=== PATIENT | male | born 1960 | race Caucasian/White ===

== ENCOUNTER 2017-07-15 13:50 | Inpatient (IN) | payer MEDICAID, OTHER ==
[~2017-07-15] VITALS: Ht 170.2 cm; Wt 96.4 kg
--- NOTE | 2017-07-15 14:05 | NUR ---
R AC G 20 IV STARTED CONVERTED TO SALINE LOCK.
[2017-07-15] MEDS ORDERED: ALBUTEROL FS 2.5 MG/3 ML VIAL.NEB NEB ONE (14:30)
[2017-07-15] MEDS ORDERED: methylPREDNISolone SOD SUCC 125 MG/2ML VIAL IV ONE (14:30)
[2017-07-15] MEDS ORDERED: IPRATROPIUM NEB FS 0.5 MG/2.5 ML AMPUL.NEB NEB ONE (14:30)
[2017-07-15 14:43] LABS: CALCIUM, SERUM 9.4 mg/dL (8.5-10.1); CARBON DIOXIDE 30 mmol/L (21-32); CHLORIDE 100 mmol/L (98-107); CREATININE 1.1 mg/dL (0.6-1.3); GLUCOSE 95 mg/dL (74-106); POTASSIUM 4.4 mmol/L (3.5-5.1); SODIUM SERUM 139 mmol/L (136-145); UREA NITROGEN, BLOOD 18 mg/dL (7-18)
[2017-07-15 14:52] LABS: TROPONIN I < 0.017 ng/mL (0.00-0.056)
[2017-07-15 14:54] LABS: BASOPHILS % (AUTO) 0.6 % (0.0-2.0); EOSINOPHILS % (AUTO) 0.4 % (0.0-6.0); HEMATOCRIT 51 % (39-51); HEMOGLOBIN 17.2 g/dL (13.5-17.5); LYMPHOCYTES # (AUTO) 1.1 /CMM (0.8-4.8); LYMPHOCYTES % (AUTO) 13.3 % (20.0-44.0); MEAN CORPUSCULAR HEMOGLOBIN 29 PG (26.0-33.0); MEAN CORPUSCULAR HGB CONC 34 g/dl (31.0-36.0); MEAN CORPUSCULAR VOLUME 87 fL (80-96); MONOCYTES # (AUTO) 1.1 /CMM (0.1-1.30); MONOCYTES % (AUTO) 13.3 % (2.0-12.0); NEUTROPHILS % (AUTO) 72.4 % (43.0-81.0); PLATELET COUNT (AUTO) 235 /CMM (150-450); RDW COEFFICIENT OF VARIATION 13.6 (11.5-15.0); RED BLOOD CELL COUNT(AUTO) 5.87 MIL/uL (4.5-6.0); WHITE BLOOD COUNT (AUTO) 8.3 K/uL (4.3-11.0)
[2017-07-15] MEDS ORDERED: methylPREDNISolone SOD SUCC 125 MG/2ML VIAL ONE (15:28)
[2017-07-15] MEDS ORDERED: ALBUTEROL FS 2.5 MG/0.5 ML VIAL.NEB ONE ×2 (15:29→15:59)
[2017-07-15] MEDS ORDERED: IPRATROPIUM NEB FS 0.5 MG/2.5 ML AMPUL.NEB ONE (15:29)
[2017-07-15] MEDS ORDERED: ALBUTEROL FS 2.5 MG/3 ML VIAL.NEB ONE (15:59)
[2017-07-15] MEDS ORDERED: ALBUTEROL FS 2.5 MG/0.5 ML VIAL.NEB NEB ONE ×2 (16:30→17:00)
[2017-07-15] MEDS ORDERED: ALBU18HF2 IH (16:59)
[2017-07-15] MEDS ORDERED: ALBU1.257 IH (16:59)
[2017-07-15] MEDS ORDERED: FLUT1DIS3 IH (16:59)
--- NOTE | 2017-07-15 17:13 | NUR ---
CALLED NURSING SUP. FOR MS BED
[2017-07-15] MEDS ORDERED: ONDANSETRON HCL/PF 4 MG/2 ML VIAL ONE (17:16)
[2017-07-15] MEDS ORDERED: Z GUARD REMEDY 2 OZ OINT TP PRN (17:30)
[2017-07-15] MEDS ORDERED: ONDANSETRON HCL/PF 4 MG/2 ML VIAL IVP PRN (17:30)
[2017-07-15] MEDS ORDERED: ALBUTEROL FS 2.5 MG/3 ML VIAL.NEB NEB PRN (17:30)
[2017-07-15] MEDS ORDERED: MAG HYDROX/AL HYDROX/SIMETH 30 ML UDC PO PRN (17:30)
[2017-07-15] MEDS ORDERED: ONDANSETRON HCL/PF - ER 4 MG/2 ML VIAL IV ONE (17:30)
[2017-07-15] MEDS ORDERED: HYDROMORPHONE 1 MG/1 ML DISP.SYRIN IV ONE (17:30)
[2017-07-15] MEDS ORDERED: MAGNESIUM HYDROXIDE 30 ML UDC PO PRN (17:30)
[2017-07-15] MEDS ORDERED: IV NS 0.9% 1,000 ML IV ONE (17:30)
[2017-07-15] MEDS ORDERED: HYDROMORPHONE 1 MG/1 ML DISP.SYRIN ONE (17:56)
--- NOTE | 2017-07-15 18:06 | NUR ---
MS 206
--- NOTE | 2017-07-15 18:35 | NUR ---
REPORT GIVEN TO NORMA
--- NOTE | 2017-07-15 19:15 | NUR ---
RN OPEN NOTES RECEIVED PATIENT AWAKE IN BED. A/O X4. NO SIGNS OF DISTRESS OR DISCOMFORT. BREATHING EVEN AND UNLABORED. PATIENT COMPLAINING OF R CHEST PAIN 6/10, BUT STATES PAIN IS TOLERABLE AT THIS TIME. IV ACCESS IN LAC, PATENT AND INTACT, NO SIGNS OF REDNESS OR INFILTRATION. BED IN LOW LOCKED POSITION WITH SIDE RAILS X2. CALL LIGHT WITHIN REACH. WILL CONTINUE TO MONITOR.
[2017-07-15 20:00] VITALS: BP 145/94
[2017-07-15] MEDS ORDERED: SERT50TA PO (20:13)
[2017-07-15 20:17] VITALS: BP 145/94
--- NOTE | 2017-07-15 20:25 | NUR ---
RN CLOSING NOTES PATIENT TRANSFERRED TO TELE BED 316 IN STABLE CONDITION. NO SIGNS OF DISTRESS OR DISCOMFORT. BREATHING EVEN AND UNLABORED. ENDORSED TO OLIVIER HASKINS FOR PJ.
--- NOTE | 2017-07-15 20:30 | NUR ---
TELERN RECEIVED FROM MS2 VIA BED, 57 Y/O MALE ALERT AND ORIENTED. PLACED ON TELEMETRY STATUS, ST RATE OF 109. NO RESPIRATORY DISTRESS, 96% ON RA. O2 STANDBY. TO CONTINUE.
[2017-07-15 20:45] VITALS: BP 126/93
[2017-07-15] MEDS: LEVOFLOXACIN 500 MG /D5W 100ML 500 MG in PREMIX 1 EA IV SCH (21:41)
[2017-07-15] MEDS: ENOXAPARIN SODIUM 40 MG/0.4 ML DISP.SYRIN SQ SCH (21:43)
[2017-07-15] MEDS: HYDROCODONE/APAP 5/325MG 1 EACH TABLET PO PRN (23:46)
--- NOTE | 2017-07-15 23:48 | NUR ---
TELERN BACK PAIN, LEVEL 6/10, NORHI 1 TAB PO ADMINISTERED. BEDREST INSTRUCTED.
[2017-07-16] VITALS: BP 153/97
[2017-07-16 00:52] LABS: TROPONIN I < 0.017 ng/mL (0.00-0.056)
[2017-07-16 01:24] LABS: CHOLESTEROL 210 mg/dL (<200); HDL CHOLESTEROL 42 mg/dL (40-60); LDL 149 mg/dL (0-99); TRIGLYCERIDES 82 mg/dL (30-150)
--- NOTE | 2017-07-16 05:19 | NUR ---
TELERN SLEP WELL. REMAINS SR ON THE MONITOR.
[2017-07-16 06:47] LABS: BASOPHILS % (AUTO) 0.1 % (0.0-2.0); EOSINOPHILS % (AUTO) 0.1 % (0.0-6.0); HEMATOCRIT 48 % (39-51); LYMPHOCYTES # (AUTO) 0.6 /CMM (0.8-4.8); MEAN CORPUSCULAR HEMOGLOBIN 29 PG (26.0-33.0); MEAN CORPUSCULAR HGB CONC 34 g/dl (31.0-36.0); MEAN CORPUSCULAR VOLUME 87 fL (80-96); MONOCYTES # (AUTO) 0.2 /CMM (0.1-1.30); MONOCYTES % (AUTO) 2.7 % (2.0-12.0); NEUTROPHILS # (AUTO) 7.2 /CMM (1.8-8.9); NEUTROPHILS % (AUTO) 90.1 % (43.0-81.0); PLATELET COUNT (AUTO) 227 /CMM (150-450); RDW COEFFICIENT OF VARIATION 12.9 (11.5-15.0); RED BLOOD CELL COUNT(AUTO) 5.49 MIL/uL (4.5-6.0)
[2017-07-16 07:12] LABS: CALCIUM, SERUM 8.7 mg/dL (8.5-10.1); PHOSPHORUS 3.4 mg/dL (2.5-4.9); POTASSIUM 3.9 mmol/L (3.5-5.1)
[2017-07-16] MEDS: ALBUTEROL FS 2.5 MG/3 ML VIAL.NEB NEB SCH ×2 (07:50→14:20)
--- NOTE | 2017-07-16 07:54 | NUR ---
MS RN OPENING NOTES RECEIVED PT FROM NIGHTSHIFT NURSE IN STABLE CONDITION. PT IS A/O X3. NO SOB OR SIGNS OF DISTRESS NOTED. HE DENIES ANY PAIN AT THIS TIME. PT IS ON RA AND SATING WELL @ 96%. WHEEZING NOTED UPON AUSCULTATION OF BILATERAL UPPER LOBES. PT. ASKS FOR PRN BREATHING TX. WILL ALERT RESPIRATORY THERAPIST. IV NOTED ON LEFT AC 20G, HL. IV IS PATENT AND INTACT. NO REDNESS OR SIGNS OF INFILTRATION NOTED. BED IN LOW LOCKED POSITION, SIDE RAILS UP X3, CALL LIGHT WITHIN REACH. WILL CONTINUE TO MONITOR
[2017-07-16 08:00] VITALS: BP 143/100
[2017-07-16] MEDS: HYDROCODONE/APAP 5/325MG 1 EACH TABLET PO PRN ×2 (08:38→20:56)
[2017-07-16] MEDS: ATORVASTATIN 10 MG TABLET PO SCH (08:39)
[2017-07-16] MEDS: methylPREDNISolone SOD SUCC 125 MG/2ML VIAL IV SCH ×3 (08:39→17:00)
[2017-07-16] MEDS: SERTRALINE HCL 50 MG TABLET PO SCH ×2 (08:40→17:00)
[2017-07-16] MEDS: FLUTICASONE/VILANTEROL 1 EACH BLST.W.DEV IH SCH (09:40)
[2017-07-16] MEDS: ACETAMINOPHEN 325 MG TABLET PO PRN (11:07)
[2017-07-16] MEDS: ALBUTEROL FS 2.5 MG/0.5 ML VIAL.NEB NEB SCH ×2 (14:20→19:42)
[2017-07-16 16:00] VITALS: BP 139/97
--- NOTE | 2017-07-16 18:41 | NUR ---
MS RN CLOSING NOTES PT REMAINS STABLE. NO ACUTE CHANGES IN CONDITION DURING SHIFT. BREATHING EVEN AND UNLABORED. NO SOB AT THIS TIME. PT SATING WELL ON RA. ALL NEEDS MET DURING SHIFT AND ORDERS CARRIED OUT ACCORDINGLY. WILL ENDORSE TO NIGHTSHIFT NURSE FOR PJ
[2017-07-16 20:00] VITALS: BP_SYST 131; BP_DIAS 83; BP_DIAS 85
--- NOTE | 2017-07-16 20:01 | NUR ---
RN OPEN NOTES RECEIVED PATIENT AWAKE IN BED. A/O X4. NO SIGNS OF DISTRESS OR DISCOMFORT. BREATHING EVEN AND UNLABORED. PATIENT CURRENTLY RECEIVING BREATHING TX AND TOLERATING WELL. DENIES ANY PAIN AT THIS TIME. IV ACCESS IN LAC, PATENT AND INTACT, NO SIGNS OF REDNESS OR INFILTRATION. BED IN LOW LOCKED POSITION WITH SIDE RAILS X2. CALL LIGHT WITHIN REACH. WILL CONTINUE TO MONITOR.
[2017-07-16] MEDS: LEVOFLOXACIN 500 MG /D5W 100ML 500 MG in PREMIX 1 EA IV SCH (20:55)
[2017-07-16] MEDS: ENOXAPARIN SODIUM 40 MG/0.4 ML DISP.SYRIN SQ SCH (20:56)
--- NOTE | 2017-07-16 20:56 | NUR ---
RN NOTES ADMINISTERED NORCO 5/325 ORDERED FOR HEADACHE PAIN 12/26. WILL CONTINUE TO MONITOR.
[2017-07-17] MEDS: ZOLPIDEM TARTRATE 5 MG TABLET PO PRN ×2 (00:24→22:41)
--- NOTE | 2017-07-17 00:24 | NUR ---
RN NOTES ADMINISTERED AMBIEN 5MG ORDERED AT PATIENT REQUEST FOR INSOMNIA. VSS. WILL CONTINUE TO MONITOR.
[2017-07-17] MEDS: ALBUTEROL FS 2.5 MG/0.5 ML VIAL.NEB NEB SCH ×4 (01:08→20:11)
[2017-07-17] MEDS: HYDROCODONE/APAP 5/325MG 1 EACH TABLET PO PRN ×3 (02:21→13:04)
--- NOTE | 2017-07-17 02:21 | NUR ---
RN NOTES ADMINISTERED NORCO 5/325 ORDERED FOR GENERALIZED PAIN 12/26. WILL CONTINUE TO MONITOR.
[2017-07-17 06:19] LABS: BASOPHILS % (AUTO) 0.1 % (0.0-2.0); EOSINOPHILS % (AUTO) 0.1 % (0.0-6.0); HEMATOCRIT 48 % (39-51); HEMOGLOBIN 15.9 g/dL (13.5-17.5); LYMPHOCYTES # (AUTO) 0.7 /CMM (0.8-4.8); LYMPHOCYTES % (AUTO) 4.3 % (20.0-44.0); MEAN CORPUSCULAR HEMOGLOBIN 29 PG (26.0-33.0); MEAN CORPUSCULAR HGB CONC 33 g/dl (31.0-36.0); MEAN CORPUSCULAR VOLUME 85 fL (80-96); MONOCYTES # (AUTO) 1.2 /CMM (0.1-1.30); MONOCYTES % (AUTO) 7.3 % (2.0-12.0); NEUTROPHILS # (AUTO) 15.1 /CMM (1.8-8.9); NEUTROPHILS % (AUTO) 88.2 % (43.0-81.0); PLATELET COUNT (AUTO) 248 /CMM (150-450); RDW COEFFICIENT OF VARIATION 12.9 (11.5-15.0); RED BLOOD CELL COUNT(AUTO) 5.57 MIL/uL (4.5-6.0)
[2017-07-17 06:37] LABS: CALCIUM, SERUM 8.4 mg/dL (8.5-10.1); MAGNESIUM 2.2 mg/dL (1.8-2.4); PHOSPHORUS 2.6 mg/dL (2.5-4.9); POTASSIUM 3.9 mmol/L (3.5-5.1)
--- NOTE | 2017-07-17 06:43 | NUR ---
RN OPEN NOTES PATIENT RESTING IN BED, EASILY AROUSABLE. A/O X4. NO SIGNS OF DISTRESS OR DISCOMFORT. BREATHING EVEN AND UNLABORED. DENIES ANY PAIN AT THIS TIME. IV ACCESS IN LAC, PATENT AND INTACT, NO SIGNS OF REDNESS OR INFILTRATION. ALL NEEDS MET. NO SIGNIFICANT CHANGES THROUGH THE NIGHT. BED IN LOW LOCKED POSITION WITH SIDE RAILS X2. CALL LIGHT WITHIN REACH. WILL ENDORSE TO AM SHIFT FOR PJ.
[2017-07-17] MEDS: ALBUTEROL FS 2.5 MG/3 ML VIAL.NEB NEB SCH ×2 (07:49→13:41)
[2017-07-17 08:00] VITALS: BP_SYST 113; BP_SYST 122; BP_DIAS 77; BP_DIAS 88
--- NOTE | 2017-07-17 08:00 | NUR ---
M/S RN - AM Notes Patient awake, A/O x 4, denies pain, not in any form of distress, afebrile, currently on 2lpm via NC, breathing tx, Solu-medrol IV for Asthma Exacerbation. Patient ambulatory and independent with bed mobility. Patient assisted with ADLs to prevent exhaustion. All needs attended and met. Will continue with current medical management.
[2017-07-17] MEDS: FLUTICASONE/VILANTEROL 1 EACH BLST.W.DEV IH SCH (08:24)
[2017-07-17] MEDS: methylPREDNISolone SOD SUCC 125 MG/2ML VIAL IV SCH ×3 (08:25→17:16)
[2017-07-17] MEDS: SERTRALINE HCL 50 MG TABLET PO SCH ×2 (08:25→17:16)
[2017-07-17] MEDS: ATORVASTATIN 10 MG TABLET PO SCH (08:25)
[2017-07-17] MEDS: AZITHROMYCIN 250 MG TABLET PO SCH (10:26)
[2017-07-17 16:00] VITALS: BP_SYST 140; BP_SYST 143; BP_DIAS 92
[2017-07-17] MEDS: LORAZEPAM 0.5 MG TABLET PO PRN (17:16)
--- NOTE | 2017-07-17 18:34 | NUR ---
M/S RN - Closing Notes No significant change in condition seen. Patient still c/o SOB when ambulating, educated on the importance of deep breathing and coughing exercises, use of oxygen, and energy conservation. Patient verbalized understanding of teachings. All needs attended. Will continue with current plan of care.
--- NOTE | 2017-07-17 19:10 | NUR ---
MS/EXPLOSIVE ORDNANCE DISPOSAL MANAGER; RECEIVED PT FROM DAY SHIFT RN FOR CONTINUITY OF CARE. AT THIS TIME PT IN BED AWAKE, ALERT, AND ORIENTED X 4. BREATHING NON LABORED WITH O2 2L NC ON. HL ON RFA INTACT AND PATENT. PT STATES STILL WITH CHEST PAIN , BACK PAIN AND ABDOMINAL WHEN HE COUGHS. BED ON LOWER POSITION AND LOCKED FOR SAFETY. UPPER PART OF BED SIDE RAILS ARE UP FOR SAFETY. PT. INSTRUCTED TO CALL FOR HELP. CALL LIGHT WITHIN REACH. ALSO PT WITH OCC. COUGH.
[2017-07-17 20:00] VITALS: BP 152/93
[2017-07-17] MEDS: ENOXAPARIN SODIUM 40 MG/0.4 ML DISP.SYRIN SQ SCH (21:06)
--- NOTE | 2017-07-17 22:40 | NUR ---
MS/SPECIAL NEEDS CAREGIVER; PT CALLED AND ASKED FOR SLEEPING MED. AMBIEN 5 MG PO HS PRN GIVEN ORDERED. PT INSTRUCTED TO CALL FOR HELP .
--- NOTE | 2017-07-17 22:45 | NUR ---
MS/FACILITIES LOCATOR; PT HAVING HEADACHE, TYLENOL 650 MG PO Q6 PRN GIVEN ORDERED. WILL REASSESS LATER ON.
[2017-07-17] MEDS: ACETAMINOPHEN 325 MG TABLET PO PRN (22:48)
[2017-07-18] MEDS: ALBUTEROL FS 2.5 MG/0.5 ML VIAL.NEB NEB SCH ×3 (02:12→14:21)
--- NOTE | 2017-07-18 07:00 | NUR ---
MS/SCHEDULE ANNOUNCER; PT WITH OCC. COUGHING AND WHEEZING. SLEPT AT GOOD INTERVALS. RESTING AT THIS TIME . WILL ENDORSE TO [facility] DAY SHIFT NURSE.
--- NOTE | 2017-07-18 07:30 | NUR ---
MS RN OPENING NOTES. PT A&0X3 OOB USING BATHROOM. PT WITH O2 VIA NC 3LPM AND REPORTING SOME SHORTNESS OF BREATH AND WHEEZING. RT READY TO PROVIDE THERAPY. PT REPORTING MINOR GENERALIZED PAIN, REQUESTING TYLENOL. PT WITH IVC AT L AC G#20 INTACT AND SALINE FLUSH PATENT. PT BRIEFED ON TODAY'S POC AND IS WITHOUT CONCERN OR COMPLAINT AT THIS TIME.
[2017-07-18 08:00] VITALS: BP 136/95
[2017-07-18] MEDS: ALBUTEROL FS 2.5 MG/3 ML VIAL.NEB NEB SCH ×4 (08:13→20:31)
[2017-07-18] MEDS: SERTRALINE HCL 50 MG TABLET PO SCH ×2 (08:19→18:11)
[2017-07-18] MEDS: ATORVASTATIN 10 MG TABLET PO SCH (08:19)
[2017-07-18] MEDS: FLUTICASONE/VILANTEROL 1 EACH BLST.W.DEV IH SCH (08:21)
[2017-07-18] MEDS: ACETAMINOPHEN 325 MG TABLET PO PRN (08:26)
[2017-07-18 09:02] LABS: CALCIUM, SERUM 8.7 mg/dL (8.5-10.1); MAGNESIUM 2.5 mg/dL (1.8-2.4); PHOSPHORUS 2.8 mg/dL (2.5-4.9)
[2017-07-18 09:11] LABS: EOSINOPHILS % (AUTO) 0.1 % (0.0-6.0); HEMATOCRIT 45 % (39-51); HEMOGLOBIN 15.3 g/dL (13.5-17.5); LYMPHOCYTES # (AUTO) 0.9 /CMM (0.8-4.8); LYMPHOCYTES % (AUTO) 6.4 % (20.0-44.0); MEAN CORPUSCULAR HEMOGLOBIN 29 PG (26.0-33.0); MEAN CORPUSCULAR HGB CONC 34 g/dl (31.0-36.0); MEAN CORPUSCULAR VOLUME 86 fL (80-96); MONOCYTES # (AUTO) 1.1 /CMM (0.1-1.30); MONOCYTES % (AUTO) 7.6 % (2.0-12.0); NEUTROPHILS # (AUTO) 12.6 /CMM (1.8-8.9); NEUTROPHILS % (AUTO) 85.9 % (43.0-81.0); PLATELET COUNT (AUTO) 259 /CMM (150-450); RDW COEFFICIENT OF VARIATION 12.8 (11.5-15.0); RED BLOOD CELL COUNT(AUTO) 5.23 MIL/uL (4.5-6.0); WHITE BLOOD COUNT (AUTO) 14.6 K/uL (4.3-11.0)
[2017-07-18 09:25] LABS: POTASSIUM 4.3 mmol/L (3.5-5.1)
[2017-07-18] MEDS: AZITHROMYCIN 250 MG TABLET PO SCH (09:51)
[2017-07-18] MEDS: methylPREDNISolone SOD SUCC 125 MG/2ML VIAL IV SCH ×3 (09:54→18:12)
[2017-07-18] MEDS: LORAZEPAM 0.5 MG TABLET PO PRN (09:56)
--- NOTE | 2017-07-18 10:00 | NUR ---
RN NOTES. PT REQUESTING PRN ATIVAN FOR ANXIETY.
[2017-07-18] MEDS: HYDROCODONE/APAP 5/325MG 1 EACH TABLET PO PRN (15:27)
[2017-07-18 16:00] VITALS: BP 157/99
--- NOTE | 2017-07-18 17:00 | NUR ---
RN NOTES. PT REQUESTED TO NOT EAT AND DRINK UNTIL AFTER A CT PULMONARY ANGIOGRAM. CONSENT SIGNED. EDUCATION PROVIDED.
[2017-07-18] MEDS ORDERED: IOHEXOL-350 100 ML VIAL IV ONE (17:19)
[2017-07-18] MEDS ORDERED: IV NS 0.9% 250 ML IV ONE (17:19)
[2017-07-18] MEDS: GUAIFENESIN/CODEINE 10 ML UDC PO SCH ×2 (18:11→22:56)
--- NOTE | 2017-07-18 19:03 | NUR ---
MS RN CLOSING NOTES. PT A&0X3, RESTING IN BED. PT WITH O2 VIA NC AT 2LPM AND SCHEDULED RT THERAPIES. PT REPORTING NO PAIN AT THIS TIME. PT WITH IVC AT L AC G#20 INTACT AND SALINE FLUSHED PATENT. BED IN LOWEST LOCKED POSITION WITH HANDRAILSX2 AND CALL LOERA WITHIN REACH. ALL DAY NURSE DUTIES ATTENDED TO, PATIENT IS WITHOUT CONCERN OR COMPLAINT AT THIS TIME, WILL ENDORSE TO NIGHT NURSE.
--- NOTE | 2017-07-18 19:30 | NUR ---
MS RN OPENING NOTES RECEIVED PATIENT RESTING IN BED, NO C/O PAIN, NO SOB, NO ACUTE DISTRESS NOTES @ THIS TIME. ON O2 @ 3 LPM VIA NC, NO ASTHMA EXACERBATION NOTED. A & O X 4, AMBULATORY, ABLE TO VERBALIZE NEEDS. CONTINENT OF B & BM. IV ACCESS TO LAC, SL, INTACT PATENT. IN SEMI CABAN POSITION. BED IN LOW LOCKED POSITION. CALL LIGHT WITHIN REACH. WILL CONTINUE TO MONITOR CLOSELY FOR ANY CHANGES.
[2017-07-18 20:08] VITALS: BP 146/101
[2017-07-18] MEDS: ENOXAPARIN SODIUM 40 MG/0.4 ML DISP.SYRIN SQ SCH (21:52)
[2017-07-18] MEDS: ZOLPIDEM TARTRATE 5 MG TABLET PO PRN (21:52)
--- NOTE | 2017-07-18 21:52 | NUR ---
PRN AMBIEN GIVEN PT ASKED TO TAKE AMBIEN DUE TO SLEEPLESSNESS. PRN AMBIEN GIVEN ORDERED. WILL REASSESS FOR EFFECTIVENESS.
[2017-07-19] MEDS: ALBUTEROL FS 2.5 MG/0.5 ML VIAL.NEB NEB SCH ×4 (01:22→19:21)
[2017-07-19 04:00] VITALS: BP 131/96
[2017-07-19] MEDS: GUAIFENESIN/CODEINE 10 ML UDC PO SCH ×4 (04:43→21:48)
--- NOTE | 2017-07-19 07:26 | NUR ---
MS RN OPENING NOTES. PT A&0X3 RESTING IN BED AND REQUESTING MORE SLEEP. PT WITH O2 VIA NC 3LPM AND REPORTING MINOR SOB WITHOUT DISTRESS, WHEEZING AUSCULTATED THROUGHOUT. NO ACTION TAKEN RT IS SCHEDULED THIS AM. PT WITH IVC AT L AC G#20 INTACT AND SALINE FLUSH PATENT. PT BRIEFED ON TODAY'S POC AND IS WITHOUT CONCERN OR COMPLAINT AT THIS TIME.
--- NOTE | 2017-07-19 07:54 | NUR ---
MS RN CLOSING NOTES PT SLEPT WELL @ NIGHT. NO C/O PAIN, NO SOB, NO ACUTE DISTRESS NOTES @ THIS TIME. ON O2 @ 3 LPM VIA NC, NO ASTHMA EXACERBATION NOTED. A & O X 4, ABLE TO VERBALIZE NEEDS. ALL NEEDS MET. CONTINENT OF B & BM. IV ACCESS TO LAC, SL, INTACT PATENT. IN SEMI CABAN POSITION. BED IN LOW LOCKED POSITION. CALL LIGHT WITHIN REACH.ENDORSED TO AM RN FOR CONTINUITY OF CARE.
[2017-07-19 08:00] VITALS: BP 142/89
[2017-07-19 08:01] LABS: BASOPHILS # (AUTO) 0.1 /CMM (0.0-0.2); BASOPHILS % (AUTO) 0.5 % (0.0-2.0); EOSINOPHILS % (AUTO) 0.1 % (0.0-6.0); HEMATOCRIT 46 % (39-51); HEMOGLOBIN 15.4 g/dL (13.5-17.5); LYMPHOCYTES % (AUTO) 8.8 % (20.0-44.0); MEAN CORPUSCULAR HEMOGLOBIN 29 PG (26.0-33.0); MEAN CORPUSCULAR HGB CONC 34 g/dl (31.0-36.0); MEAN CORPUSCULAR VOLUME 86 fL (80-96); MONOCYTES # (AUTO) 0.8 /CMM (0.1-1.30); MONOCYTES % (AUTO) 6.8 % (2.0-12.0); NEUTROPHILS # (AUTO) 9.2 /CMM (1.8-8.9); NEUTROPHILS % (AUTO) 83.8 % (43.0-81.0); PLATELET COUNT (AUTO) 243 /CMM (150-450); RDW COEFFICIENT OF VARIATION 12.9 (11.5-15.0); RED BLOOD CELL COUNT(AUTO) 5.35 MIL/uL (4.5-6.0); WHITE BLOOD COUNT (AUTO) 11.1 K/uL (4.3-11.0)
[2017-07-19] MEDS: FLUTICASONE/VILANTEROL 1 EACH BLST.W.DEV IH SCH (08:30)
[2017-07-19] MEDS: methylPREDNISolone SOD SUCC 125 MG/2ML VIAL IV SCH ×2 (08:31→13:12)
[2017-07-19] MEDS: SERTRALINE HCL 50 MG TABLET PO SCH ×2 (08:31→17:29)
[2017-07-19] MEDS: ALBUTEROL FS 2.5 MG/3 ML VIAL.NEB NEB SCH ×3 (08:47→19:21)
[2017-07-19 08:48] LABS: CALCIUM, SERUM 8.7 mg/dL (8.5-10.1); PHOSPHORUS 3.3 mg/dL (2.5-4.9)
[2017-07-19 09:06] LABS: POTASSIUM 3.7 mmol/L (3.5-5.1)
[2017-07-19] MEDS: AZITHROMYCIN 250 MG TABLET PO SCH (09:23)
[2017-07-19] MEDS: ATORVASTATIN 10 MG TABLET PO SCH (09:23)
[2017-07-19 16:00] VITALS: BP 133/84
[2017-07-19] MEDS: HYDROCODONE/APAP 5/325MG 1 EACH TABLET PO PRN (17:29)
--- NOTE | 2017-07-19 19:15 | NUR ---
RN OPEN NOTES RECEIVED PATIENT AWAKE IN BED. A/O X4. NO SIGNS OF DISTRESS OR DISCOMFORT. BREATHING EVEN AND UNLABORED. ON 2LPM O2 VIA NC. STATES HE HAS HEADACHE PAIN 5/10 AND TOLERABLE AT THIS TIME. IV ACCESS IN LAC, PATENT AND INTACT, NO SIGNS OF REDNESS OR INFILTRATION. BED IN LOW LOCKED POSITION WITH SIDE RAILS X2. CALL LIGHT WITHIN REACH. WILL CONTINUE TO MONITOR.
[2017-07-19 20:00] VITALS: BP 135/94
[2017-07-19 20:53] VITALS: BP 135/94
[2017-07-19] MEDS: ENOXAPARIN SODIUM 40 MG/0.4 ML DISP.SYRIN SQ SCH (21:50)
[2017-07-19] MEDS: ZOLPIDEM TARTRATE 5 MG TABLET PO PRN (21:53)
[2017-07-20] MEDS: ALBUTEROL FS 2.5 MG/0.5 ML VIAL.NEB NEB SCH ×3 (01:19→13:21)
[2017-07-20] MEDS: GUAIFENESIN/CODEINE 10 ML UDC PO SCH ×2 (05:28→11:13)
--- NOTE | 2017-07-20 07:59 | NUR ---
MS RN NOTES PATIENT IN BED, AWAKE. A/O X3. BREATHING TREATMENT GIVEN BY RT, EFFECTIVE, NO SOB. APPEARS COMFORTABLE IN BED, IVC IN LEFT AC G 20 PATENT AND INTACT, FLUSHES WELL. CALL LIGHT WITHIN REACH. WILL CONT TO MONITOR.
[2017-07-20 08:18] LABS: BASOPHILS # (AUTO) 0.1 /CMM (0.0-0.2); BASOPHILS % (AUTO) 0.4 % (0.0-2.0); HEMATOCRIT 46 % (39-51); HEMOGLOBIN 15.5 g/dL (13.5-17.5); LYMPHOCYTES % (AUTO) 15.7 % (20.0-44.0); MEAN CORPUSCULAR HEMOGLOBIN 29 PG (26.0-33.0); MEAN CORPUSCULAR HGB CONC 34 g/dl (31.0-36.0); MEAN CORPUSCULAR VOLUME 87 fL (80-96); MONOCYTES # (AUTO) 0.9 /CMM (0.1-1.30); MONOCYTES % (AUTO) 6.9 % (2.0-12.0); NEUTROPHILS # (AUTO) 9.8 /CMM (1.8-8.9); PLATELET COUNT (AUTO) 237 /CMM (150-450); RDW COEFFICIENT OF VARIATION 12.8 (11.5-15.0); RED BLOOD CELL COUNT(AUTO) 5.29 MIL/uL (4.5-6.0); WHITE BLOOD COUNT (AUTO) 12.8 K/uL (4.3-11.0)
[2017-07-20] MEDS: SERTRALINE HCL 50 MG TABLET PO SCH (08:42)
[2017-07-20] MEDS: ATORVASTATIN 10 MG TABLET PO SCH (08:42)
[2017-07-20] MEDS: AZITHROMYCIN 250 MG TABLET PO SCH (08:45)
[2017-07-20] MEDS: FLUTICASONE/VILANTEROL 1 EACH BLST.W.DEV IH SCH (08:45)
[2017-07-20] MEDS: HYDROCODONE/APAP 5/325MG 1 EACH TABLET PO PRN ×2 (08:52→15:00)
[2017-07-20 08:54] LABS: CALCIUM, SERUM 8.4 mg/dL (8.5-10.1); MAGNESIUM 2.5 mg/dL (1.8-2.4); PHOSPHORUS 3.3 mg/dL (2.5-4.9); POTASSIUM 3.5 mmol/L (3.5-5.1)
[2017-07-20] MEDS ORDERED: predniSONE 20 MG TABLET PO SCH (09:00)
[2017-07-20 11:10] LABS: BAND % (MANUAL) 3 % (0.0-5.0); LYMPHOCYTES % (MANUAL) 15 % (16-48); MONOCYTES % (MANUAL) 3 % (0-11.0); NEUTROPHILS % (MANUAL) 79 (42-76)
--- NOTE | 2017-07-20 12:44 | NUR ---
PATIENT IS AMBULATING WITH STEADY GAIT AND BALANCE, SATING 92% IN RA AFTER AMBULATION, NO SOB NOTED. PATIENT IS SEEN BY DR. TENA, PATIENT TO BE DISCHARGED HOME TODAY ORDERED.
--- NOTE | 2017-07-20 15:30 | NUR ---
MS RN DISCHARGED NOTES PATIENT HAS BEEN CLEARED FOR DISCHARGE HOME BY MD. VS REMAINS STABLE, TOLERATING ROOM AIR WITH NO SOB. SKIN INTACT, IVC REMOVED IN LEFT AC, GAUZE APPLIED, NO BLEEDING NOTED. DISCHARGE INSTRUCTION GIVEN TO THE PATIENT, VERBALIZED UNDERSTANDING. PRESCRIPTION AND BELONGINGS SEND WITH THE PATIENT UPON DC. PATIENT LEFT HOSP IN STABLE CONDITION VIA PRIVATE CAR ACCOMPANIED BY .
== END 2017-07-20 15:27 | disposition home or self-care (01) | DRG 133 ==
LOC: ER 13:55 → MEDSG2 18:42 → TELE 20:22 → MED 07-16 08:08
PROVIDERS: ADMIT Internal Medicine; ATTEND Internal Medicine
DX: J96.01 Acute respiratory failure with hypoxia (principal); J45.21 Mild intermittent asthma with (acute) exacerbation; I10 Essential (primary) hypertension; F32.9 Major depressive disorder, single episode, unspecified; E78.5 Hyperlipidemia, unspecified; E66.9 Obesity, unspecified; K21.9 Gastro-esophageal reflux disease without esophagitis; Z79.899 Other long term (current) drug therapy; Z88.0 Allergy status to penicillin; Z68.33 Body mass index [BMI] 33.0-33.9, adult; J40 Bronchitis, not specified as acute or chronic; R09.1 Pleurisy
CPT/HCPCS: 36415; 71010-TC; 80048-TC; 80061-TC; 83735-TC; 84100-TC; 84484-TC; 85025-TC; 87081-TC; A4216; A4606; J1170; J1650; J1956; J2405; J2930; J7030; J7050; Q9967; Z7610

== ENCOUNTER 2017-09-26 13:13 | Emergency (ER) | payer MEDICAID ==
[~2017-09-26] VITALS: Ht 170.2 cm; Wt 90.7 kg
[~2017-09-26 13:13] MED LIST: ALBU1.257 IH; ALBU18HF2 IH; SERT50TA PO
[2017-09-26 13:16] VITALS: BP 111/67
== END 2017-09-26 14:07 | disposition home or self-care (01) ==
LOC: ER 13:15
DX: H60.591 Other noninfective acute otitis externa, right ear (principal); L03.211 Cellulitis of face; I10 Essential (primary) hypertension; Z86.718 Personal history of other venous thrombosis and embolism; Z88.0 Allergy status to penicillin; Z60.2 Problems related to living alone
CPT/HCPCS: A4606; Z7610

== ENCOUNTER 2017-11-11 19:38 | Inpatient (IN) | payer MEDICAID ==
[~2017-11-11] VITALS: Ht 172.7 cm; Wt 95.7 kg
--- NOTE | 2017-11-11 00:20 | NUR ---
SPECIAL TESTER NOTES MADE AWARE OF BLOOD PRESSURE 142/105 WITH NO NEW ORDERS AT THIS TIME, WILL CONTINUE TO MONITOR.
--- NOTE | 2017-11-11 19:38 | NUR ---
BB SELF; SOB WITH ABDOMINAL PAIN 03/28. VSS NAD. PATIENT HAVING HARD TIME SITTING DOWN AT THIS TIME. WILL CONTINUE TO MONITOR FOR ANY CHANGES
--- NOTE | 2017-11-11 19:51 | NUR ---
BLOOD SENT TO LAB WITH FORENSIC LOCKSMITH
[2017-11-11] MEDS ORDERED: ONDANSETRON HCL/PF 4 MG/2 ML VIAL ONE (19:56)
[2017-11-11] MEDS ORDERED: MORPHINE SULFATE INJ 4 MG/ML DISP.SYRIN ONE ×2 (19:56→21:39)
[2017-11-11 20:00] LABS: BASOPHILS # (AUTO) 0.2 /CMM (0.0-0.2); BASOPHILS % (AUTO) 0.9 % (0.0-2.0); EOSINOPHILS % (AUTO) 0.4 % (0.0-6.0); HEMATOCRIT 49 % (39-51); HEMOGLOBIN 16.7 g/dL (13.5-17.5); LYMPHOCYTES # (AUTO) 2.3 /CMM (0.8-4.8); LYMPHOCYTES % (AUTO) 12.6 % (20.0-44.0); MEAN CORPUSCULAR HGB CONC 34 g/dl (31.0-36.0); MEAN CORPUSCULAR VOLUME 86 fL (80-96); MONOCYTES # (AUTO) 1.8 /CMM (0.1-1.30); NEUTROPHILS # (AUTO) 14.1 /CMM (1.8-8.9); NEUTROPHILS % (AUTO) 76.1 % (43.0-81.0); PLATELET COUNT (AUTO) 275 /CMM (150-450); RDW COEFFICIENT OF VARIATION 13.9 (11.5-15.0); RED BLOOD CELL COUNT(AUTO) 5.69 MIL/uL (4.5-6.0); WHITE BLOOD COUNT (AUTO) 18.5 K/uL (4.3-11.0)
[2017-11-11] MEDS ORDERED: IPRATROPIUM NEB FS 0.5 MG/2.5 ML AMPUL.NEB NEB ONE (20:00)
[2017-11-11] MEDS ORDERED: ONDANSETRON HCL/PF 4 MG/2 ML VIAL IVP ONE (20:00)
[2017-11-11] MEDS ORDERED: MORPHINE SULFATE INJ 2 MG/ML DISP.SYRIN IV ONE ×2 (20:00→21:30)
[2017-11-11] MEDS ORDERED: ALBUTEROL FS 2.5 MG/0.5 ML VIAL.NEB NEB ONE (20:00)
[2017-11-11] MEDS ORDERED: IV NS 0.9% 1,000 ML BAG IV ONE (20:00)
--- NOTE | 2017-11-11 20:01 | NUR ---
RT CALLED FOR A BREATHING TX
[2017-11-11] MEDS ORDERED: IOHEXOL-300 100 ML VIAL IV ONE (20:05)
[2017-11-11] MEDS ORDERED: IV NS 0.9% 250 ML IV ONE (20:06)
[2017-11-11 20:11] LABS: CALCIUM, SERUM 9.8 mg/dL (8.5-10.1); CREATININE 1.2 mg/dL (0.6-1.3); POTASSIUM 4.2 mmol/L (3.5-5.1)
[2017-11-11] MEDS ORDERED: ALBUTEROL FS 2.5 MG/0.5 ML VIAL.NEB ONE (20:13)
[2017-11-11] MEDS ORDERED: IPRATROPIUM NEB FS 0.5 MG/2.5 ML AMPUL.NEB ONE (20:13)
[2017-11-11 20:14] LABS: INR 1.1 (0.85-1.15)
[2017-11-11 20:17] LABS: ALBUMIN 4.6 g/dL (3.4-5.0); BILIRUBIN,DIRECT 0.2 mg/dL (0.0-0.2); TOTAL PROTEIN, SERUM 9.7 g/dL (6.4-8.2)
[2017-11-11] MEDS ORDERED: ALBUTEROL FS 2.5 MG/3 ML VIAL.NEB ONE (20:37)
[2017-11-11] MEDS ORDERED: ALBUTEROL FS 2.5 MG/3 ML VIAL.NEB CONTNEB ONE (21:00)
--- NOTE | 2017-11-11 22:02 | NUR ---
CALLED NURSING CAREERS COUNSELLOR AND REQUESTED A OLIVERIO RM FOR THIS PT.
--- NOTE | 2017-11-11 22:03 | NUR ---
AT 2037, PT. HAD A ABD. PELVIS WITH CONTRAST, INFORMED THE BARREL WASHER MACHINE (LUAN LIMA) ABOUT THE CONTRAST STUDY, SHE SAID JUST DO THE PULMONARY ANGIO TOMORROW (11/12/17), PT. IS GETTING ADMITTED.
--- NOTE | 2017-11-11 22:08 | NUR ---
CALLED [facility] FOR PANEL CALL AND DR GAYTAN WAS PAGED.
--- NOTE | 2017-11-11 22:18 | NUR ---
PT IS ASSIGNED TO [facility]#: [id number], PT IS DIAGNOSED WITH INTRACTABLE ABDOMINAL PAIN AND ASTHMA EXACERBATION, AND DR GAYTAN IS THE ACCEPTING MD.
[2017-11-11] MEDS ORDERED: LISI10TA5 PO (22:35)
[2017-11-11] MEDS ORDERED: ALBU18HF2 INH (22:35)
[2017-11-11] MEDS ORDERED: PRED5TAB48 PO (22:35)
[2017-11-11] MEDS ORDERED: IPRA3AMP23 IH (22:35)
[2017-11-11] MEDS ORDERED: MELO-105 PO (22:35)
[2017-11-11] MEDS ORDERED: RIVA10TA PO (22:35)
[2017-11-11] MEDS ORDERED: MONT10TA22 PO (22:35)
[2017-11-11] MEDS ORDERED: HYDR-552 PO (22:35)
[2017-11-11 22:41] LABS: APPEARANCE,URINE CLEAR (CLEAR); BILIRUBIN,URINE NEGATIVE (NEGATIVE); BLOOD, URINE 1+ Ery/uL (NEGATIVE); COLOR,URINE YELLOW (YELLOW); KETONES,URINE TRACE (NEGATIVE); LEUKOCYTE ESTERASE ,URINE NEGATIVE (NEGATIVE); NITRITE, URINE NEGATIVE (NEGATIVE); PROTEIN,URINE NEGATIVE (NEGATIVE); UGLUCOSE NEGATIVE (NEGATIVE); UROBILINOGEN,URINE 0.2 EU/dL (0.2)
[2017-11-11 22:45] VITALS: BP 142/107
--- NOTE | 2017-11-11 22:45 | NUR ---
LEAD APPLICATIONS DEVELOPER ADMITTING NOTES RECEIVED PATIENT FROM ER VIA STRETCHER, AWAKE ALERT AND ORIENTED X4, RESPIRATIONS EVEN AND UNLABORED 18 AT THIS TIME RA SPO2 AT 96%,COMPLAINTS OF PAIN ON LEFT ABDOMINAL AREA WITH PAIN MEDS GIVEN IN ER, PER PATIENT TOLERABLE AT THIS TIME, IV SITE TO LEFT AC 18 GAUGE, INTACT AND PATENT, UPON ASSESSMENT NOTED PATIENT LAYING COMFORTABLY WITH TV ON NO FACIAL GRIMACING NOTED, NPO STATUS EXCEPT MEDS AT THIS TIME. ON BATTER MIXER SINUS TACHY AT 107. BODY ASSESSMENT DONE, SKIN INTACT NO WOUNDS PRESENT. BELONGINGS LIST DONE, MD AWARE OF ADMISSION AWAITING ORDERS WILL CONTINUE TO FOLLOW UP , PATIENT ORIENTED TO ROOM, STAFF AND CALL LIGHT, URINAL AT BEDSIDE, SAFETY MEASURES IN PLACE CALL LIGHT KEPT WITHIN REACH.
[2017-11-11 22:52] LABS: WBC,URINE 0-2 /HPF (0-3)
[2017-11-11 22:53] LABS: BACTERIA,URINE Rare /HPF (None Seen); SQUAMOUS EPITHELIAL CELL,UR Rare /HPF (None Seen)
[2017-11-12] MEDS ORDERED: ONDANSETRON HCL/PF 4 MG/2 ML VIAL IVP PRN
[2017-11-12] MEDS ORDERED: methylPREDNISolone SOD SUCC 40 MG/ML VIAL IV SCH
[2017-11-12] MEDS ORDERED: MORPHINE SULFATE INJ 2 MG/ML DISP.SYRIN IV PRN
[2017-11-12] MEDS ORDERED: ENOXAPARIN SODIUM 40 MG/0.4 ML DISP.SYRIN SQ SCH
[2017-11-12] MEDS ORDERED: LEVOFLOXACIN 500 MG /D5W 100ML 100 ML IV ONE (00:10)
--- NOTE | 2017-11-12 00:14 | NUR ---
OFFICE SERVICES CLERK NOTES SPOKE TO DR. GAYTAN PER MD D/C LOV[place]OX PATIENT IS ON XARELTO, ORDER NOTED AND CARRIED OUT.
--- NOTE | 2017-11-12 00:19 | NUR ---
SQUARE SHEAR OPERATOR NOTES SPOKE TO , PER D/C MEME , ORDER NOTED AND CARRIED OUT.
[2017-11-12] MEDS: LEVOFLOXACIN 500 MG /D5W 100ML 500 MG in PREMIX 1 EA IV SCH (00:31)
[2017-11-12] MEDS: IV D5/0.45 NACL 1,000 ML IV PRN ×2 (00:33→20:50)
[2017-11-12] MEDS: ZOLPIDEM TARTRATE 5 MG TABLET PO PRN ×2 (01:31→21:39)
[2017-11-12 04:02] VITALS: BP 135/85
[2017-11-12 04:13] VITALS: BP 135/85
[2017-11-12] MEDS ORDERED: METRONIDAZOLE 500MG/ NS 100ML 100 ML IV ONE (04:29)
[2017-11-12] MEDS: METRONIDAZOLE 500MG/ NS 100ML 500 MG in PREMIX 1 EA IV SCH ×3 (04:34→20:50)
--- NOTE | 2017-11-12 06:39 | NUR ---
FASHION ILLUSTRATOR CLOSING NOTES PATIENT AWAKE ALERT AND ORIENTED X4, RESPIRATIONS EVEN AND UNLABORED 18 AT THIS TIME RA SPO2 AT 96%, NO COMPLAINTS OF PAIN ON LEFT ABDOMINAL AREA THROUGHOUT SHIFT , IV SITE TO LEFT AC 18 GAUGE, INTACT AND PATENT, IVF FLUID RUNNING ORDERED LAYING COMFORTABLY, NO FACIAL GRIMACING NOTED, NPO STATUS EXCEPT MEDS AT THIS TIME. ON WASH HOUSE WORKER SR AT 87.ASSISTED TO THE BATHROOM VOIDED, URINAL AT BEDSIDE, SAFETY MEASURES IN PLACE CALL LIGHT KEPT WITHIN REACH WILL CONTINUE TO FOLLOW UP AND ENDORSE TO NEXT SHIFT.
[2017-11-12 07:08] LABS: BASOPHILS % (AUTO) 0.2 % (0.0-2.0); EOSINOPHILS % (AUTO) 0.9 % (0.0-6.0); HEMATOCRIT 44 % (39-51); HEMOGLOBIN 14.8 g/dL (13.5-17.5); LYMPHOCYTES # (AUTO) 1.6 /CMM (0.8-4.8); LYMPHOCYTES % (AUTO) 14.4 % (20.0-44.0); MEAN CORPUSCULAR HGB CONC 34 g/dl (31.0-36.0); MEAN CORPUSCULAR VOLUME 87 fL (80-96); MONOCYTES # (AUTO) 1.2 /CMM (0.1-1.30); MONOCYTES % (AUTO) 11.2 % (2.0-12.0); NEUTROPHILS # (AUTO) 8.2 /CMM (1.8-8.9); NEUTROPHILS % (AUTO) 73.3 % (43.0-81.0); PLATELET COUNT (AUTO) 240 /CMM (150-450); RDW COEFFICIENT OF VARIATION 14.3 (11.5-15.0); RED BLOOD CELL COUNT(AUTO) 5.03 MIL/uL (4.5-6.0); WHITE BLOOD COUNT (AUTO) 11.1 K/uL (4.3-11.0)
[2017-11-12 07:19] LABS: THYROID STIMULATING HORMONE 0.797 uIU/mL (0.358-3.74)
[2017-11-12 07:21] LABS: ALBUMIN 3.6 g/dL (3.4-5.0); BILIRUBIN,TOTAL 0.8 mg/dL (0.2-1.0); CALCIUM, SERUM 8.7 mg/dL (8.5-10.1); CREATININE 0.8 mg/dL (0.6-1.3); MAGNESIUM 2.2 mg/dL (1.8-2.4); PHOSPHORUS 3.6 mg/dL (2.5-4.9); POTASSIUM 4.2 mmol/L (3.5-5.1); TOTAL PROTEIN, SERUM 7.7 g/dL (6.4-8.2)
--- NOTE | 2017-11-12 07:25 | NUR ---
OVERCOILER OPENING NOTES PATIENT RECEIVED AWAKE IN BED IN NO ACUTE SIGNS OF DISTRESS. A/O X4, SAME ABLE TO MAKE NEEDS KNOWN, NO C/O PAIN OR DISCOMFORTS AT THIS TIME. PT IS NPO STATUS EXCEPT MEDS AT THIS TIME. ON ROOM AIR, RESPIRATIONS EVEN AND UNLABORED. ON TELE- MONITORING WITH CURRENT READING OF SR AND HR OF 79. IV ACCESS ON LEFT AC G#18 INTACT AND PATENT, IVF OF D5 1/2 NS @ 75ML/HR INFUSING WELL, NO SIGNS OF INFILTRATIONS NOTED. BED IN LOW/LOCKED POSITION. CALL LIGHT WITHIN REACH WILL CONTINUE TO MONITOR.
[2017-11-12] MEDS ORDERED: FENTANYL PF 100MCG/2ML AMPUL IV PRN (07:30)
[2017-11-12] MEDS ORDERED: PANTOPRAZOLE 40 MG TABLET.DR PO SCH (07:30)
[2017-11-12 08:00] VITALS: BP 141/97
[2017-11-12] MEDS: LISINOPRIL (10MG) 10 MG TABLET PO SCH (08:16)
[2017-11-12] MEDS: SERTRALINE HCL 50 MG TABLET PO SCH ×2 (08:17→16:49)
[2017-11-12] MEDS: MONTELUKAST SODIUM (10MG) 10 MG TABLET PO SCH (08:17)
[2017-11-12] MEDS: RIVAROXABAN 10 MG TABLET PO SCH (08:19)
[2017-11-12] MEDS ORDERED: IOHEXOL-350 100 ML VIAL IV ONE (09:07)
[2017-11-12] MEDS ORDERED: IV NS 0.9% 250 ML IV ONE (09:08)
[2017-11-12] MEDS ORDERED: CT SWABBABLE VALVE TRANS SET 1 EA INFUS.SET MC ONE (09:08)
[2017-11-12 12:00] VITALS: BP 136/84
--- NOTE | 2017-11-12 13:27 | NUR ---
RN NOTES PATIENT SEEN AND EVALUATED BY MIRIAN MIN WITH ORDER TO PUT PT ON CLEAR LIQUID DIET AT THIS TIME.
[2017-11-12] MEDS: ACETAMINOPHEN 325 MG TABLET PO PRN (13:54)
[2017-11-12] MEDS: IPRATROPIUM NEB FS 0.5 MG/2.5 ML AMPUL.NEB NEB PRN (14:12)
[2017-11-12] MEDS: ALBUTEROL FS 2.5 MG/3 ML VIAL.NEB NEB PRN (14:12)
--- NOTE | 2017-11-12 15:03 | NUR ---
RN NOTES PT C/O LEFT LOWER QUADRANT AND RIGHT UPPER QUADRANT PAIN, PRN TYLENOL 650MG GIVEN ORDERED. PT VERBALIZED THAT TYLENOL DOESN'T RELIEVE THE PAIN. DR ASHTON MADE AWARE WITH ORDER TO GIVE NORCO 5/325 P.O. NEXT TIME PT ASK FOR PAIN MEDICATION. WILL CONTINUE TO MONITOR.
[2017-11-12 16:00] VITALS: BP 138/72
[2017-11-12] MEDS: HYDROCODONE/APAP 5/325MG 1 EACH TABLET PO PRN (16:50)
--- NOTE | 2017-11-12 18:26 | NUR ---
MS/RN CLOSING NOTES PATIENT AWAKE AND WATCHING TV IN BED. A/O X4. ABLE TO COMMUNICATE VERBALLY. ON TOLERATING ROOM AIR WITH NO ACUTE RESPIRATORY DISTRESS NOTED. IV ACCESS ON LEFT AC G#18 INTACT AND PATENT, IVF OF D5 1/2 NS @ 75ML/HR INFUSING WELL, NO SIGNS OF INFILTRATIONS NOTED. hob KEPT ELEVATED. MAINTAINED BED IN LOW/LOCKED POSITION. CALL LIGHT AND BEDSIDE TABLE PLACED WITHIN EASY REACH OF PT. ALL NEEDS AND CARE ATTENDED WELL. WILL ENDORSED TO ICE CREAM SHOP ASSOCIATE NURSE FOR PJ.
--- NOTE | 2017-11-12 19:35 | NUR ---
MS RN NOTE RECEIVED PATIENT FROM DAY SHIFT, PATIENT IS ALERT AND ORIENTEDX4, NO S/S OF RESPIRATORY DISTRESS AT THIS TIME, COMPLAINS OF MILD PAIN ON ABDOMEN. IV ON LEFT AC IS PATENT AND INTACT, FLUID IS RUNNING. CURRENTLY ON CLEAR LIQUIDS DIET. SRX2, BED IN LOW POSITION, CALL LIGHT WITHIN REACH, WILL CONTINUE TO MONITOR PATIENT.
[2017-11-12 20:00] VITALS: BP 145/87
[2017-11-13] MEDS: LEVOFLOXACIN 500 MG /D5W 100ML 500 MG in PREMIX 1 EA IV SCH (01:04)
--- NOTE | 2017-11-13 02:00 | NUR ---
MS RN NOTE PATIENT HAS WHEEZING BREATHING SOUND, CALLED RT FOR PRN TREATMENT.
[2017-11-13] MEDS: ALBUTEROL FS 2.5 MG/3 ML VIAL.NEB NEB PRN ×2 (02:48→23:52)
[2017-11-13] MEDS: HYDROCODONE/APAP 5/325MG 1 EACH TABLET PO PRN ×3 (03:25→18:31)
--- NOTE | 2017-11-13 03:25 | NUR ---
MS RN NOTE PATIENT COMPLAINS OF PAIN ON LLQ. NORCO 5-325MG PO GIVEN. WILL MONITOR EFFECTIVENESS.
[2017-11-13] MEDS: METRONIDAZOLE 500MG/ NS 100ML 500 MG in PREMIX 1 EA IV SCH ×3 (04:45→20:53)
--- NOTE | 2017-11-13 06:37 | NUR ---
MS RN NOTE PATIENT IS RESTING IN BED COMFORTABLY, NON-LABORED BREATHING NOTED. STILL COMPLAINS OF MILD PAIN ON HIS LOWER ABDOMEN. IV ON LEFT FA IS PATENT AND INTACT, FLUID IS RUNNING. WILL ENDORSE TO DAY SHIFT NURSE FOR PJ.
--- NOTE | 2017-11-13 07:05 | NUR ---
ms rn initial notes Received patient in bed, asleep, head of bed elevated, no sob or distress noted, on room air and tolerated well, no facial grimcae noted. Alert and oriented x 4, verbally responsive and able to make needs known as endorsed. IV intact and patent with IVF infusing well. Call light with in patient reach, will continue to monitor accordingly.
[2017-11-13 08:00] VITALS: BP 116/85
[2017-11-13] MEDS: PANTOPRAZOLE 40 MG VIAL IV SCH (08:31)
[2017-11-13] MEDS: MONTELUKAST SODIUM (10MG) 10 MG TABLET PO SCH (08:31)
[2017-11-13] MEDS: RIVAROXABAN 10 MG TABLET PO SCH (08:32)
[2017-11-13] MEDS: SERTRALINE HCL 50 MG TABLET PO SCH ×2 (08:32→16:30)
[2017-11-13] MEDS: LISINOPRIL (10MG) 10 MG TABLET PO SCH (08:32)
[2017-11-13 16:00] VITALS: BP 153/109
[2017-11-13] MEDS: ACETAMINOPHEN 325 MG TABLET PO PRN (16:30)
--- NOTE | 2017-11-13 19:11 | NUR ---
ms rn closing notes All needs provided, attended, and anticipated, patient in stable condition at this time, endorsed to next shift RN to continue care. Call light with in patient reach.
[2017-11-13 20:00] VITALS: BP 146/99
--- NOTE | 2017-11-13 20:00 | NUR ---
MS/RN NOTES PATIENT IN BED, CALM AND COOPERATIVE TO CARE, RESPIRATIONS EVEN AND UNLABORED, DENIES PAIN, NO GUARDING OR GRIMACE BUT VERBALIZED NEED OF SLEEP MEDICATION, ON IV ANTIBIOTIC FLAGYL, LEFT AC, RUNNING WITH NO S/S OF INFILTRATION, WILL CONTINUE TO PROVIDE CARE. RECEIVED ENDORSEMENT FROM AM RN FOR PJ.
[2017-11-13] MEDS: ZOLPIDEM TARTRATE 5 MG TABLET PO PRN (21:11)
--- NOTE | 2017-11-13 21:13 | NUR ---
ms/rn notes patient requested for ambien 5mg po as needed for inability to sleep will monitor sleep
--- NOTE | 2017-11-13 23:45 | NUR ---
MS/RN NOTES PATIENT AMBULATED TO BATHROOM, NOTED SOME SOB, WHEEZING, RT MADE AWARE, HOB ELEVATED, ADMINISTERED OXYGEN VIA NC AT 2L FOR COMFORT, WILL MONITOR.
--- NOTE | 2017-11-13 23:46 | NUR ---
MS/RN NOTES ALBUTEROL SULFATE INH WAS DISPENSE AND INFORM RT TO ADMINISTER .
[2017-11-14] MEDS: LEVOFLOXACIN 500 MG /D5W 100ML 500 MG in PREMIX 1 EA IV SCH (01:10)
[2017-11-14] MEDS: METRONIDAZOLE 500MG/ NS 100ML 500 MG in PREMIX 1 EA IV SCH ×3 (04:23→21:20)
--- NOTE | 2017-11-14 06:43 | NUR ---
MS/RN NOTES 320-1 PATIENT IN BED, ALERT, ORIENTED X3, ABLE EN VERBALIZE NEEDS, ABLE TO SLEEP DURING THE NIGHT WITH SLEEPING PILL,CALM AND COOPERATIVE, NEEDED BREATHING TREATMENT FOR SOB, RESPIRATIONS EVEN AND UNLABORED, SKIN WARM TO TOUCH, IV ON LEFTAC, PATENT AND RUNNING, BED IIN LOCK POSITION CALL LIGHTS WITHIN REACH, WILL CONTINUE YO MONITOR.
--- NOTE | 2017-11-14 07:19 | NUR ---
ms rn initial notes Received patient in bed, asleep, head of bed elevated, no sob or distress noted, on room air and tolerated well, no facial grimace noted. Alert and oriented x 4, verbally responsive and able to make needs known as endorsed. IV intact and patent with IVF infusing well. Call light with in patient reach, will continue to monitor accordingly.
[2017-11-14 08:00] VITALS: BP_SYST 140; BP_SYST 152; BP_DIAS 84; BP_DIAS 98
[2017-11-14 08:09] LABS: BASOPHILS # (AUTO) 0.1 /CMM (0.0-0.2); BASOPHILS % (AUTO) 1.4 % (0.0-2.0); EOSINOPHILS % (AUTO) 2.4 % (0.0-6.0); HEMATOCRIT 48 % (39-51); HEMOGLOBIN 16.1 g/dL (13.5-17.5); LYMPHOCYTES # (AUTO) 1.6 /CMM (0.8-4.8); LYMPHOCYTES % (AUTO) 19.3 % (20.0-44.0); MEAN CORPUSCULAR HGB CONC 33 g/dl (31.0-36.0); MEAN CORPUSCULAR VOLUME 87 fL (80-96); MONOCYTES # (AUTO) 0.7 /CMM (0.1-1.30); MONOCYTES % (AUTO) 8.4 % (2.0-12.0); NEUTROPHILS # (AUTO) 5.5 /CMM (1.8-8.9); NEUTROPHILS % (AUTO) 68.5 % (43.0-81.0); PLATELET COUNT (AUTO) 279 /CMM (150-450); RDW COEFFICIENT OF VARIATION 14.7 (11.5-15.0); RED BLOOD CELL COUNT(AUTO) 5.55 MIL/uL (4.5-6.0); WHITE BLOOD COUNT (AUTO) 8.1 K/uL (4.3-11.0)
[2017-11-14 08:15] LABS: CALCIUM, SERUM 9.3 mg/dL (8.5-10.1); MAGNESIUM 2.2 mg/dL (1.8-2.4); PHOSPHORUS 3.2 mg/dL (2.5-4.9); POTASSIUM 4.6 mmol/L (3.5-5.1)
[2017-11-14] MEDS: LISINOPRIL (10MG) 10 MG TABLET PO SCH (08:26)
[2017-11-14] MEDS: PANTOPRAZOLE 40 MG VIAL IV SCH (08:26)
[2017-11-14] MEDS: SERTRALINE HCL 50 MG TABLET PO SCH ×2 (08:27→16:46)
[2017-11-14] MEDS: MONTELUKAST SODIUM (10MG) 10 MG TABLET PO SCH (08:27)
[2017-11-14] MEDS: RIVAROXABAN 10 MG TABLET PO SCH (08:27)
[2017-11-14] MEDS: HYDROCODONE/APAP 5/325MG 1 EACH TABLET PO PRN ×2 (12:08→18:44)
[2017-11-14] MEDS: IV D5/0.45 NACL 1,000 ML IV PRN (12:12)
[2017-11-14] MEDS ORDERED: BISACODYL (5 MG) 5 MG TABLET.DR PO PRN (12:30)
[2017-11-14] MEDS ORDERED: BISACODYL SUPP (10 MG) 10 MG/SUPP.RECT SUPP.RECT RC PRN (12:30)
[2017-11-14] MEDS: LACTOBACILLUS RHAMNOSUS GG 1 EACH CAP.SPRINK PO SCH ×2 (12:35→16:46)
[2017-11-14] MEDS: POLYETHYLENE GLYCOL 3350 17 GM POWD.PACK PO SCH ×2 (12:35→21:20)
[2017-11-14] MEDS: DOCUSATE SODIUM 100 MG CAPSULE PO SCH ×2 (12:35→16:46)
[2017-11-14 16:00] VITALS: BP 130/98
[2017-11-14 17:00] VITALS: BP 130/100
--- NOTE | 2017-11-14 19:13 | NUR ---
ms rn closing notes All needs provided, attended, and anticipated, patient is in stable condition. Endorsed to next shift RN to continue care. Call light with in patient reach.
[2017-11-14 20:00] VITALS: BP 143/87
--- NOTE | 2017-11-14 20:00 | NUR ---
MS/RN OPENING NOTES PATIENT IN BED HOB ELEVATED, RESPIRATIONS EVEN AND UNLABORED, AWAKE, ALERT X3, ABLE TO VERBALIZE NEEDS, LAST PAIN MEDICATION GIVEN BEFORE THE START OF SHIFT, NO GRIMACE AND GUARDING, REQUESTED TO HAVE MEDICATION FOR SLEEP, AMBIEN 5MG PO AT 2100. CALL LIGHTS WITHIN REACH, IV SILE ON LEFT FOREARM, PATENT W/ NO S/S OF INFILTRATION, CALL LIGHTS WITHIN REACH, BED IN LOCK POSITION. RECEIVED ENDORSEMENT FROM AM RN FOR PJ. WILL CONTINUE TO MONITOR AND ATTEND TO NEEDS.
[2017-11-14] MEDS: ALBUTEROL FS 2.5 MG/3 ML VIAL.NEB NEB PRN (20:43)
[2017-11-14] MEDS: IPRATROPIUM NEB FS 0.5 MG/2.5 ML AMPUL.NEB NEB PRN (20:43)
[2017-11-14] MEDS: ZOLPIDEM TARTRATE 5 MG TABLET PO PRN (21:20)
[2017-11-15] MEDS: LEVOFLOXACIN 500 MG /D5W 100ML 500 MG in PREMIX 1 EA IV SCH (01:24)
[2017-11-15] MEDS: METRONIDAZOLE 500MG/ NS 100ML 500 MG in PREMIX 1 EA IV SCH (04:55)
--- NOTE | 2017-11-15 05:06 | NUR ---
ms/rn notes PATIENT ABLE TO SLEEP DURING THE NIGHT, MONITORING FOR ANY CHANGES, GAVE REPORT TO CAMERON HASKINS FOR PJ.
--- NOTE | 2017-11-15 05:10 | NUR ---
MS RN NOTES PT SLEEPING. EASILY AROUSABLE. NOT IN ANY DISTRESS. NO SOB NOTED. DENIES ANY PAIN OR DISCOMFORT AT THIS TIME. WITH IV-HL PATENT & INTACT. CALL LIGHT WITH REACH. BED IN LOWEST POSITION. SR UP X 2 FOR SAFETY. WILL CONTINUE TO MONITOR.
--- NOTE | 2017-11-15 06:57 | NUR ---
MS RN NOTES AWAKE & RESPONSIVE. NOT IN ANY DISTRESS. NO SOB NOTED. DENIES ANY PAIN OR DISCOMFORT AT THIS TIME. WITH IV-HL PATENT & INTACT. MONITORED ACCORDINGLY. CALL LIGHT WITH REACH. BED IN LOWEST POSITION. SR UP X 2 FOR SAFETY. WILL ENDORSE TO NEXT SHIFT.
[2017-11-15 07:53] LABS: CALCIUM, SERUM 8.7 mg/dL (8.5-10.1); CREATININE 0.9 mg/dL (0.6-1.3); PHOSPHORUS 3.4 mg/dL (2.5-4.9); POTASSIUM 4.1 mmol/L (3.5-5.1)
[2017-11-15 08:00] VITALS: BP_SYST 122; BP_SYST 140; BP_DIAS 86; BP_DIAS 98
[2017-11-15 08:02] LABS: BASOPHILS # (AUTO) 0.1 /CMM (0.0-0.2); EOSINOPHILS % (AUTO) 3.5 % (0.0-6.0); HEMATOCRIT 45 % (39-51); HEMOGLOBIN 15.1 g/dL (13.5-17.5); LYMPHOCYTES # (AUTO) 1.5 /CMM (0.8-4.8); MEAN CORPUSCULAR HGB CONC 34 g/dl (31.0-36.0); MEAN CORPUSCULAR VOLUME 87 fL (80-96); MONOCYTES # (AUTO) 0.7 /CMM (0.1-1.30); MONOCYTES % (AUTO) 9.7 % (2.0-12.0); NEUTROPHILS # (AUTO) 4.4 /CMM (1.8-8.9); NEUTROPHILS % (AUTO) 63.8 % (43.0-81.0); PLATELET COUNT (AUTO) 282 /CMM (150-450); RDW COEFFICIENT OF VARIATION 14.2 (11.5-15.0); RED BLOOD CELL COUNT(AUTO) 5.14 MIL/uL (4.5-6.0); WHITE BLOOD COUNT (AUTO) 6.9 K/uL (4.3-11.0)
[2017-11-15] MEDS: SERTRALINE HCL 50 MG TABLET PO SCH (08:15)
[2017-11-15] MEDS: PANTOPRAZOLE 40 MG VIAL IV SCH (08:15)
[2017-11-15 08:16] VITALS: BP 122/86
[2017-11-15] MEDS: MONTELUKAST SODIUM (10MG) 10 MG TABLET PO SCH (08:16)
[2017-11-15] MEDS: DOCUSATE SODIUM 100 MG CAPSULE PO SCH (08:16)
[2017-11-15] MEDS: LISINOPRIL (10MG) 10 MG TABLET PO SCH (08:16)
[2017-11-15] MEDS: LACTOBACILLUS RHAMNOSUS GG 1 EACH CAP.SPRINK PO SCH (08:16)
[2017-11-15] MEDS: RIVAROXABAN 10 MG TABLET PO SCH (08:16)
--- NOTE | 2017-11-15 14:00 | NUR ---
ms bucket turner notes Discharge instructions given to patient and able to understand instructions. signed discharge paper and belonging list, no item missing. Prescription given. Informed to follow up with primary health care physician in 1-2 weeks and made aware. IV discontinued and pressured applied to prevent bleeding. Skin is intact no need for pictures. Flu and pneumonia vaccine not given due to patient already receives vaccination 06/2017. Patient left in stable condition accompanied by RN assigned. No complaint of pain or discomfort noted. Vital signs checked and recorded. MD and charge nurse aware.
== END 2017-11-15 14:05 | disposition home or self-care (01) | DRG 244 ==
LOC: ER 19:39 → TELE 22:24 → MED 11-12 08:55
PROVIDERS: ADMIT Internal Medicine; ATTEND Internal Medicine
DX: K57.92 Diverticulitis of intestine, part unspecified, without perforation or abscess without bleeding (principal); N17.0 Acute kidney failure with tubular necrosis; J15.6 Pneumonia due to other Gram-negative bacteria; J44.0 Chronic obstructive pulmonary disease with (acute) lower respiratory infection; J45.901 Unspecified asthma with (acute) exacerbation; K21.9 Gastro-esophageal reflux disease without esophagitis; I10 Essential (primary) hypertension; K59.00 Constipation, unspecified; E78.5 Hyperlipidemia, unspecified; Z86.718 Personal history of other venous thrombosis and embolism; Z87.11 Personal history of peptic ulcer disease; Z82.49 Family history of ischemic heart disease and other diseases of the circulatory system; Z79.01 Long term (current) use of anticoagulants; Z88.0 Allergy status to penicillin; Z79.51 Long term (current) use of inhaled steroids; Z79.899 Other long term (current) drug therapy; G89.29 Other chronic pain; M19.90 Unspecified osteoarthritis, unspecified site; Z68.32 Body mass index [BMI] 32.0-32.9, adult; E66.9 Obesity, unspecified; F12.90 Cannabis use, unspecified, uncomplicated
CPT/HCPCS: 36415; 71045-TC; 80048-TC; 80053-TC; 80061-TC; 80076-TC; 81000-TC; 83540-TC; 83690-TC; 83735-TC; 83880; 84100-TC; 84443-TC; 84484-TC; 85025-TC; 85730-TC; 87081-TC; 93970-TC; A4216; A4606; C9113; J1956; J2270; J2405; J2920; J3490; J7030; J7050; Q9967; Z7610

== ENCOUNTER 2018-04-15 09:12 | Emergency (ER) | payer MEDICAID ==
[~2018-04-15] VITALS: Ht 170.2 cm; Wt 93.4 kg
[~2018-04-15 09:12] MED LIST changes: +ALBU18HF2 INH; +HYDR-552 PO; +IPRA3AMP23 IH; +LISI10TA5 PO; +MONT10TA22 PO; +PRED5TAB48 PO; +RIVA10TA PO
--- NOTE | 2018-04-15 09:15 | NUR ---
PRESENTS TO ER C/O ASTHMA ATTACK, TOOK INHALER SINCE LAST NIGHT TO NO RELIEF. A/OX 4, BREATHING EVEN AND UNLABORED, WHEEZING. NO DISTRESS. VITALS STABLE. SAFETY AND COMFORT MEASURES IN PLACE. AWAITING MD ORDERS.
--- NOTE | 2018-04-15 09:28 | NUR ---
CALLED RT FOR BREATHING TREATMENT.
--- NOTE | 2018-04-15 09:29 | NUR ---
DR TAVARES AT FOR TAJAL.
[2018-04-15] MEDS ORDERED: predniSONE 20 MG TABLET PO ONE (09:30)
[2018-04-15] MEDS ORDERED: IPRATROPIUM NEB FS 0.5 MG/2.5 ML AMPUL.NEB NEB ONE ×2 (09:30→10:30)
[2018-04-15] MEDS ORDERED: ALBUTEROL FS 2.5 MG/3 ML VIAL.NEB NEB ONE ×2 (09:30→10:30)
[2018-04-15] MEDS ORDERED: predniSONE 20 MG TABLET ONE (09:33)
[2018-04-15] MEDS ORDERED: ALBUTEROL FS 2.5 MG/3 ML VIAL.NEB ONE ×2 (09:39→10:32)
[2018-04-15] MEDS ORDERED: IPRATROPIUM NEB FS 0.5 MG/2.5 ML AMPUL.NEB ONE ×2 (09:39→10:33)
--- NOTE | 2018-04-15 09:52 | NUR ---
imaging technologist at bedside.
[2018-04-15 11:30] VITALS: BP 155/100
--- NOTE | 2018-04-15 11:41 | NUR ---
VERBALIZED UNDERSTANDING OF ACI AND RX
== END 2018-04-15 11:55 | disposition home or self-care (01) ==
LOC: ER 09:13
DX: J45.901 Unspecified asthma with (acute) exacerbation (principal); I10 Essential (primary) hypertension; Z86.718 Personal history of other venous thrombosis and embolism; Z98.890 Other specified postprocedural states; Z88.0 Allergy status to penicillin; Z60.2 Problems related to living alone; Z79.899 Other long term (current) drug therapy
CPT/HCPCS: 71045-TC; A4606; Z7610

== ENCOUNTER 2020-05-17 10:52 | Emergency (ER) | payer BC, MEDICAID ==
[~2020-05-17] VITALS: Ht 170.2 cm; Wt 90.7 kg
[2020-05-17 10:52] VITALS: BP 128/78
[~2020-05-17 10:52] MED LIST changes: +HYDR-4384 PO; -HYDR-552 PO
[2020-05-17] MEDS ORDERED: oxyCODONE/APAP (5/325 MG) 1 UDTAB TABLET ONE (12:44)
[2020-05-17] MEDS ORDERED: COLCHICINE 0.6 MG TABLET ONE (12:44)
[2020-05-17] MEDS: oxyCODONE/APAP (5/325 MG) 1 UDTAB TABLET PO ONE (12:48)
[2020-05-17] MEDS: COLCHICINE 0.6 MG TABLET PO ONE (12:48)
== END 2020-05-17 12:52 | disposition home or self-care (01) ==
LOC: ER 10:57
DX: M10.072 Idiopathic gout, left ankle and foot (principal); I10 Essential (primary) hypertension; J44.9 Chronic obstructive pulmonary disease, unspecified; Z98.890 Other specified postprocedural states; Z88.0 Allergy status to penicillin; Z60.2 Problems related to living alone; Z79.899 Other long term (current) drug therapy
CPT/HCPCS: 73610-TC

== ENCOUNTER → 2024-06-12 | Emergency (ER) | payer MEDICAID ==
[~2024-06-12] VITALS: Ht 170.2 cm; Wt 79.4 kg
[~2024-06-12] MED LIST changes: +ALBUTEROL FS 2.5 MG/3 ML VIAL.NEB ONE; +IPRATROPIUM NEB FS 0.5 MG/2.5 ML AMPUL.NEB ONE; +LISI10TA29 PO; -LISI10TA5 PO; +Magnesium 1GM/D5W 100ML PREMIX 100 ML IV ONE; +methylPREDNISolone SOD SUCC 125 MG/2ML VIAL ONE
[2024-06-12 15:14] VITALS: TEMP 101
[2024-06-12] MEDS: IV NS 0.9% 1,000 ML BAG IV ONE (16:00)
[2024-06-12] MEDS: methylPREDNISolone SOD SUCC 125 MG/2ML VIAL IV ONE (16:01)
[2024-06-12] MEDS: Magnesium 1GM/D5W 100ML PREMIX 200 ML IV ONE (16:05)
[2024-06-12 16:20] VITALS: O2SAT 98
[2024-06-12] MEDS: IPRATROPIUM NEB FS 0.5 MG/2.5 ML AMPUL.NEB NEB ONE (16:20)
[2024-06-12] MEDS: ALBUTEROL FS 2.5 MG/3 ML VIAL.NEB NEB ONE (16:20)
[2024-06-12 17:27] VITALS: O2SAT 95
[2024-06-12 19:59] VITALS: BP 145/89; O2SAT 95
== END | disposition home or self-care (01) ==
LOC: ER 15:12
DX: J44.1 Chronic obstructive pulmonary disease with (acute) exacerbation (principal); R00.0 Tachycardia, unspecified; R53.1 Weakness; I10 Essential (primary) hypertension; M10.9 Gout, unspecified; Z79.01 Long term (current) use of anticoagulants; Z79.52 Long term (current) use of systemic steroids; Z79.899 Other long term (current) drug therapy; Z86.718 Personal history of other venous thrombosis and embolism; Z88.0 Allergy status to penicillin; Z60.2 Problems related to living alone; Z20.822 Contact with and (suspected) exposure to COVID-19
CPT/HCPCS: 99285; 96365; 96375; 87426; 93005; 94799; 94644; J2919; J7030; A4223; J3475 ×2